=== PATIENT | male | born 1970 | race Caucasian/White ===

== ENCOUNTER 2023-03-16 21:32 | Emergency (ER) | payer OTHER ==
[~2023-03-16] VITALS: Ht 177.8 cm; Wt 74.8 kg
[2023-03-16 22:45] VITALS: BP 135/98
[2023-03-16] MEDS ORDERED: IBUP800 PO (22:51)
[2023-03-16] MEDS ORDERED: Percocet 5-3251 EACH PO (22:51)
== END 2023-03-16 23:00 | disposition home or self-care (01) ==
LOC: ER 21:32
DX: S42.031A Displaced fracture of lateral end of right clavicle, initial encounter for closed fracture (principal); V19.9XXA Pedal cyclist (driver) (passenger) injured in unspecified traffic accident, initial encounter; Z88.0 Allergy status to penicillin; F17.200 Nicotine dependence, unspecified, uncomplicated
CPT/HCPCS: 73000; 73030; 99284-25; A9270